=== PATIENT | male | born 1955 | race American Indian/Alaskan Native ===

== ENCOUNTER 2022-03-13 09:16 | Emergency (ER) | payer SELFPAY ==
--- NOTE | 2022-03-13 10:37 | Emergency Department Report ---
HPI - General Chief Complaint: Abdominal Pain Time Seen by Provider: 03/13/22 10:22 - HPI HPI: Room 23 Patient is a 66-year-old male present with a chief complaint of abdominal swelling. Patient states for the past 2 3 months he has had worsening swelling of his abdomen. Patient is also noted pain and swelling in both of his feet. Patient denies history of fever nausea or vomiting. Patient denies diarrhea. Patient states she has felt constipated with his last bowel movement occurring 2 days ago when he normally has 1 daily. Patient states he does consume "a couple beers "daily for most of his life. ED Past Medical Hx - Past Medical History Previous Medical History?: No - Surgical History Past Surgical History?: No Additional Surgical History: Right inguinal hernia repair - Family History Family history: no significant - Social History Smoking Status: Former Smoker (None x30 years) Substance Use Type: None (Denies illicit drug use), Alcohol ("A couple beers" daily) ED Review of Systems ROS: Stated complaint: STOMACH PAIN/FEET PAIN Other details as noted in HPI Constitutional: denies: fever Eyes: denies: eye pain ENT: denies: throat pain Respiratory: no symptoms reported Cardiovascular: denies: chest pain Endocrine: no symptoms reported Gastrointestinal: abdominal pain. denies: nausea, vomiting Musculoskeletal: denies: back pain Neurological: denies: headache Physical Exam - Physical Exam Vital Signs: Vital Signs 03/13/22 09:46 Temperature 99.1 F Pulse Rate 104 H Respiratory 14 Rate Blood Pressure 98/62 [Left] O2 Sat by Pulse 99 Oximetry Physical Exam: GENERAL: The patient is well-developed well-nourished male lying on stretcher not appearing to be in acute distress. [] HEENT: Normocephalic. Atraumatic. Extraocular motions are intact. Patient has moist mucous membranes. NECK: Supple. Trachea midline CHEST/LUNGS: Clear to auscultation. There is no respiratory distress noted. HEART/CARDIOVASCULAR: Regular. There is no tachycardia. There is no gallop rub or murmur. ABDOMEN: Abdomen is soft, nontender. Patient has normal bowel sounds. There is a large amount of ascites present SKIN: There is no rash. There is 2+ bilateral lower extremity pitting. There is no diaphoresis. NEURO: The patient is awake, alert, and oriented. The patient is cooperative. The patient has no focal neurologic deficits. The patient has normal speech. GCS 15 MUSCULOSKELETAL:There is no evidence of acute injury. ED Course Vital Signs 03/13/22 09:46 Temperature 99.1 F Pulse Rate 104 H Respiratory 14 Rate Blood Pressure 98/62 [Left] O2 Sat by Pulse 99 Oximetry ED Medical Decision Making - Lab Data Result diagrams: 03/13/22 10:09 03/13/22 10:09 - Radiology Data Radiology results: report reviewed (Chest x-ray), image reviewed (Chest x-ray chest x-ray) interpreted by me: Chest x-ray-no definite focal infiltrates, no pneumothorax. Mild cephalization [facility] [address] [place] [address] XRay Report Signed Patient: MACK LUI MR#: [id number] [birth year] : 1955 Acct:[id number] Age/Sex: 66 / M ADM Date: 03/13/22 Loc: ED Attending Dr: Ordering Physician: KELLEN DORAN MD Date of Service: 03/13/22 Procedure(s): XR chest 1V ap Accession Number(s): [id number] cc: KELLEN DORAN MD Fluoro Time In Minutes: XR chest 1V ap INDICATION / CLINICAL INFORMATION: Anasarca. COMPARISON: None available. FINDINGS: SUPPORT DEVICES: None. HEART /PULMONARY VASCULATURE: Heart is upper normal in size. There is mild congestion of the pulmonary vasculature. LUNGS / PLEURA: Mild patchy left basilar airspace opacity. Right lung is clear. No pleural effusion. No pneumothorax. ADDITIONAL FINDINGS: No significant additional findings. IMPRESSION: Heart and pulmonary vasculature are prominent, may reflect mild volume overload/CHF. Left basilar airspace opacity likely reflects atelectasis or edema. Unable to exclude superimposed pneumonia. Signer Name: Dmitry Rivera MD Signed: 03/13/2022 1:24 PM Workstation Name: [id number] Transcribed By: SHAQ Dictated By: DMITRY RIVERA MD Electronically Authenticated By: DMITRY RIVERA MD Signed Date/Time: 03/13/22 1324 DD/ 1323 TD/TT: - Differential Diagnosis Cirrhosis/hypoalbuminemia, acute renal failure, CHF, Critical care attestation.: If time is entered above; I have spent that time in minutes in the direct care of this critically ill patient, excluding procedure time. ED Disposition Clinical Impression: Anasarca, Hypoalbuminemia, Alcoholic hepatitis Disposition: ADMITTED INPATIENT Is pt being admited?: Yes Does the pt Need Aspirin: No Condition: Fair Referrals: CATY GREEN MD [Primary Care Provider] - 3-5 Days Time of Disposition: 13:40 (Care transferred to hospitalist (Dr. Avila))
[2022-03-13 11:00] LABS: Basophils % (Auto) 0.6 % (0.0-1.8); Eosinophils % (Auto) 0.7 % (0.0-4.3); Hematocrit 31.1 % (35.5-45.6); Hemoglobin 10.8 gm/dl (11.8-15.2); Lymphocytes # (Auto) 0.8 K/mm3 (1.2-5.4); Lymphocytes % (Auto) 17.1 % (13.4-35.0); Mean Corpuscular HGB Conc 35 % (32-34); Mean Corpuscular Volume 102 fl (84-94); Monocytes # (Auto) 0.7 K/mm3 (0.0-0.8); Monocytes % (Auto) 13.7 % (0.0-7.3); Red Blood Count 3.06 M/mm3 (3.65-5.03); Red Cell Distribution Width 15.9 % (13.2-15.2)
[2022-03-13 11:39] LABS: Alanine Aminotransferase 55 units/L (7-56); Albumin 1.6 g/dL (3.9-5); BUN/Creatinine Ratio 10; Blood Urea Nitrogen 10 mg/dL (9-20); Calcium 8.1 mg/dL (8.4-10.2); Hemolysis Index 0
[2022-03-13 11:47] LABS: Bilirubin,Urine MOD (Negative); Blood,Urine NEG (Negative); Color,Urine Amber (Yellow)
[2022-03-13 12:00] LABS: Amorphous Crystals,Urine Few; Granular Casts,Urine 5 /LPF; Hyaline Casts,Urine 11 /LPF; Mucus,Urine 2+ /HPF
[2022-03-13 12:07] LABS: Platelet Count 49 K/mm3 (140-440)
[2022-03-13 12:21] LABS: Ictotest,Urine Positive (Negative)
[2022-03-13 12:23] LABS: INR 2.39 (0.87-1.13)
[2022-03-13 12:24] LABS: Partial Thromboplastin Time 52.9 Sec. (24.2-36.6)
--- NOTE | 2022-03-13 13:28 | XRay Report ---
XR chest 1V ap INDICATION / CLINICAL INFORMATION: Anasarca. COMPARISON: None available. FINDINGS: SUPPORT DEVICES: None. HEART /PULMONARY VASCULATURE: Heart is upper normal in size. There is mild congestion of the pulmonar y vasculature. LUNGS / PLEURA: Mild patchy left basilar airspace opacity. Right lung is clear. No pleural effusion. No pneumothorax. ADDITIONAL FINDINGS: No significant additional findings. IMPRESSION: Heart and pulmonary vasculature are prominent, may reflect mild volume overload/CHF. Left basilar air space opacity likely reflects atelectasis or edema. Unable to exclude superimposed pneumonia. Signer Name: Krish Rivera MD Signed: 03/13/2022 1:24 PM Workstation Name: [id number]
--- NOTE | 2022-03-13 14:11 | History and Physical Report ---
History of Present Illness Chief complaint: I feel weak History of present illness: 66 YO Male with End Stage Liver Disease, ETOH Dependence, Cirrhosis complicated by Ascites, Malnutrition presents to ED for evaluation. Patient states "I feel weak". Patient states that he had experienced generalized weakness and abd ominal swelling over the past 3 months with persistent and worsening symptoms over the same timeframe. Patient knowledges decreased oral intake, as well as daily alcohol ingestion. Patient transported to [facility] via private vehicle for further care and evaluation of the aforementioned symptoms. The patient was seen and evaluated in the emergency department. All lab and imaging studies reviewed. Patient found to have end-stage liver disease complicated by cirrhosis and ascites. Patient knowledges abdominal distention. Patient denies shortness of breath, trauma, fever, chills, chest pain, palpitation, productive cough, skin rash, recent contact, known exposure to COVID-19. No prior admissi on for review. No medication listed at time of admission for reconciliation. Advanced care planning conducted in ED. Patient found to have a poor prognosis with a life expectancy of less than 6 months if the illness runs its expected course. Patient has a pulse oximetry of 98% on room air. Patient is medically optimized at this time. Patient is not a candidate for liver transplant due to continued alcohol use. Patient discharged home with hospice care. Past History Past Medical History: other (See HPI) Past Surgical History: hernia repair Social history: alcohol abuse Family history: hypertension Medications and Allergies Allergies Allergy/AdvReac Type Severity Reaction Status Date / Time No Known Allergies Allergy Verified 03/13/22 09:50 Home Medications Medication Instructions Recorded Confirmed Last Taken Type LORazepam [Ativan] 1 mg PO QHS #14 tab 03/13/22 Unknown Rx Morphine Concentrate [MORPHINE 10 mg PO Q4HR PRN #100 ml 03/13/22 Unknown Rx Conc 20 MG/ML ORAL LIQ] Review of Systems Constitutional: weight gain, weakness Ears, nose, mouth and throat: no ear pain, no ear discharge, no decreased hearing, no nasal congestion, no nasal discharge Cardiovascular: no chest pain, no orthopnea, no rapid/irregular heart beat, no edema Respiratory: no cough, no shortness of breath Gastrointestinal: other (Abdominal discomfort, and abdominal distention), no abdominal pain, no nausea, no vomiting, no diarrhea, no constipation Genitourinary Male: no flank pain, no discharge, no urinary frequency, no urinary hesitancy Rectal: no pain, no incontinence, no bleeding Musculoskeletal: no neck stiffness, no shooting arm pain, no arm numbness/tingli ng, no shooting leg pain Integumentary: no rash, no pruritis, no redness, no wounds, no jaundice Neurological: no head injury, no paralysis, no numbness, no seizures, no syncope Psychiatric: no anxiety, no change in sleep habits, no hypersomnia, no change in libido, no disorientation Endocrine: no cold intolerance, no heat intolerance, no polyphagia, no excessive thirst, no polyuria, no nocturia Hematologic/Lymphatic: no easy bruising, no easy bleeding Allergic/Immunologic: no urticaria, no allergic rhinitis Exam - Constitutional Vitals: Temp Pulse Resp BP Pulse Ox 99.1 F 94 H 19 118/67 74 L 03/13/22 09:46 03/13/22 13:01 03/13/22 13:31 03/13/22 13:31 03/13/22 13:31 General appearance: Present: mild distress - EENT Eyes: Present: PERRL ENT: hearing intact, clear oral mucosa - Neck Neck: Present: supple, normal ROM - Respiratory Respiratory effort: normal Respiratory: bilateral: CTA - Cardiovascular Heart Sounds: Present: S1 & S2. Absent: rub, click - Extremities Extremities: pulses symmetrical Extremity abnormal: edema Peripheral Pulses: within normal limits - Abdominal General gastrointestinal: Present: soft, non-tender, distended, normal bowel sounds, hernia Male genitourinary: Present: normal - Integumentary Integumentary: Present: clear, warm, dry - Musculoskeletal Musculoskeletal: gait normal, strength equal bilaterally - Psychiatric Psychiatric: appropriate mood/affect, intact judgment & insight - Neurologic Neurologic: CNII-XII intact, moves all extremities Results - Labs CBC & Chem 7: 03/13/22 10:09 03/13/22 10:09 Labs: Abnormal lab results 03/13/22 03/13/22 03/13/22 Range/Units 10:04 10:09 10:09 RBC 3.06 L (3.65-5.03) M/mm3 Hgb 10.8 L (11.8-15.2) gm/dl Hct 31.1 L (35.5-45.6) % MCV 102 H (84-94) fl MCH 35 H (28-32) pg MCHC 35 H (32-34) % RDW 15.9 H (13.2-15.2) % Plt Count 49 L (140-440) K/mm3 Creek % (Auto) 13.7 H (0.0-7.3) % Lymph # (Auto) 0.8 L (1.2-5.4) K/mm3 PT (12.2-14.9) Sec. INR (0.87-1.13) APTT (24.2-36.6) Sec. Sodium 127 L (137-145) mmol/L Chloride 93.7 L (98-107) mmol/L Calcium 8.1 L (8.4-10.2) mg/dL Total Bilirubin 5.60 H (0.1-1.2) mg/dL AST 152 H (5-40) units/L Alkaline Phosphatase 136 H (35-129) units/L Total Protein 9.4 H (6.3-8.2) g/dL Albumin 1.6 L (3.9-5) g/dL Urine WBC (Auto) 7.0 H (0.0-6.0) /HPF 03/13/22 Range/Units 10:40 RBC (3.65-5.03) M/mm3 Hgb (11.8-15.2) gm/dl Hct (35.5-45.6) % MCV (84-94) fl MCH (28-32) pg MCHC (32-34) % RDW (13.2-15.2) % Plt Count (140-440) K/mm3 Creek % (Auto) (0.0-7.3) % Lymph # (Auto) (1.2-5.4) K/mm3 PT 29.8 H (12.2-14.9) Sec. INR 2.39 H (0.87-1.13) APTT 52.9 H (24.2-36.6) Sec. Sodium (137-145) mmol/L Chloride (98-107) mmol/L Calcium (8.4-10.2) mg/dL Total Bilirubin (0.1-1.2) mg/dL AST (5-40) units/L Alkaline Phosphatase (35-129) units/L Total Protein (6.3-8.2) g/dL Albumin (3.9-5) g/dL Urine WBC (Auto) (0.0-6.0) /HPF Assessment and Plan - Patient Problems (1) End stage liver disease Current Visit: Yes Status: Acute Plan to address problem: Patient found to have a life expectancy of 6 months or less if the illness runs its expected course. Patient discharged home with home hospice care. Pain control, benzodiazepine therapy as clinically indicated for agitation. Patient is not a candidate for liver transplant due to continued alcohol ingestion. (2) Malnutrition Current Visit: Yes Status: Acute Qualifiers: Malnutrition type: protein-calorie malnutrition Protein-calorie m alnutrition severity: moderate Qualified Code(s): E44.0 - Moderate protein- calorie malnutrition Plan to address problem: Increase protein intake, dietary supplementation as clinically indicated. (3) Alcoholic hepatitis Current Visit: Yes Status: Acute Qualifiers: Ascites presence: with ascites Qualified Code(s): K70.11 - Alcoholic hepatitis with ascites Plan to address problem: Supportive care, pain control. (4) Anasarca Current Visit: Yes Status: Acute Plan to address problem: Chronic, supportive care, pain control. (5) Hypoalbuminemia Current Visit: Yes Status: Acute Plan to address problem: Supportive care, increase protein intake. (6) Advance care planning Current Visit: Yes Status: Acute Plan to address problem: Disease education data, care plan discussed, diagnoses discussed, prognosis discussed. Patient knowledges understanding agreement care plan, +30 minutes. (7) Preventative health care Current Visit: Yes Status: Acute Plan to address problem: Patient counseled regarding poor prognosis, life expectancy, and home hospice care. Patient counseled regarding risk factor reduction and alcohol cessation. +30 minutes.
[2022-03-13 22:22] VITALS: BP 155/76
== END 2022-03-13 21:40 | disposition admitted as inpatient to this hospital (09) ==
LOC: ED 09:16
DX: E88.09 Other disorders of plasma-protein metabolism, not elsewhere classified (principal); K70.10 Alcoholic hepatitis without ascites; R60.1 Generalized edema; Z87.891 Personal history of nicotine dependence; Z79.899 Other long term (current) drug therapy
CPT/HCPCS: 36415; 71045; 80053; 81001; 83690; 85025; 85610; 85730; 99284